=== PATIENT | female | born 1935 | race Caucasian/White ===

== ENCOUNTER 2016-07-27 17:38 | Emergency (ER) | payer SELFPAY ==
[2016-07-27 17:51] VITALS: BP 108/74; PULSE 77; RESP 14; TEMP 97.8; O2SAT 95
--- NOTE | 2016-07-27 17:59 | PD ---
Physical Exam Date Seen by Provider: July 27, 2016 Time Seen by Provider: 17:58 Narrative 80 yo female here for confusion and altered mental status for 2 days. No pain. history of CHF and COPD. No fevers, chills or sweats. More lethargic than usual. per family BP low. No falls or injuries. Currently staying at a hotel. Vitals sign stable. Patient awaiting bed placement. Data Data Last Documented VS Vital Signs Date Time Temp Pulse Resp B/P Pulse Ox O2 Delivery O2 Flow Rate FiO2 07/27/16 17:51 97.8 77 14 108/74 95 MDM Medical Record Reviewed: Yes Supervised Visit with MOHAN: No Ricardo Lawrence July 27, 2016 17:59
[2016-07-27] MEDS ORDERED: LISI2.5T3 PO (18:57)
[2016-07-27] MEDS ORDERED: CLOP75TA PO (18:57)
[2016-07-27] MEDS ORDERED: POTA10CA PO (18:57)
[2016-07-27] MEDS ORDERED: CLOR15TA PO (18:57)
[2016-07-27] MEDS ORDERED: OXYC15TA PO (18:57)
[2016-07-27] MEDS ORDERED: FURO40TA PO (18:57)
[2016-07-27] MEDS ORDERED: PERI8.6T PO (18:57)
[2016-07-27] MEDS ORDERED: SODIUM CHLORIDE 0.9% FLUSH 5 ML FLUSH IV FLUSH PRN (19:15)
--- NOTE | 2016-07-27 19:18 | PD ---
HPI Chief Complaint: Altered Mental Status Time Seen by Provider: 19:15 Travel History International Travel<30 days: No Contact w/Intl Traveler<30days: No Traveled to known affect area: No History of Present Illness HPI Patient comes in for evaluation of being more confused than normal over the past 20 days. Daughter denies patient complaining anything, known fevers, shortness of breath, chest pain, headaches, falls, or being on any blood thinners. Daughter reports that patient had similar about a month ago and was diagnosed with a UTI. Daughter also thinks that she may have gotten a half dose of her sister's clonidine by accident. Patient denies any chest pain, shortness of breath, recent falls, loss or change in bowel or bladder, abdominal pain, nausea, vomiting, or fevers. 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 ) Social History Alcohol Use: No Tobacco Use: Yes Substance Use: No Allergies-Medications (Allergen,Severity, Reaction): Coded Allergies: Iodine (Verified Allergy, Unknown, 07/27/16) Reported Meds & Prescriptions Reported Meds & Active Scripts Active Cephalexin 500 Mg Cap 500 Mg PO Q12H 10 Days Reported Clorazepate (Clorazepate Dipotassium) 15 Mg Tab 15 Mg PO BID PRN Potassium Chloride ER (Potassium Chloride) 10 Meq Cap 10 Meq PO DAILY Oxycodone (Oxycodone HCl) 15 Mg Tab 15 Mg PO Q6H PRN Clopidogrel (Clopidogrel Bisulfate) 75 Mg Tab 75 Mg PO DAILY Lisinopril 2.5 Mg Tab 2.5 Mg PO DAILY Arti-Colace (Sennosides-Docusate Sodium) 8.6-50 Mg Tab 1 Tab PO BID PRN Furosemide 40 Mg Tab 40 Mg PO DAILY Review of Systems Except as stated in HPI: all other systems reviewed are Neg Physical Exam Narrative GENERAL: Well-developed, well nourished, in no acute distress, and non-ill appearing. SKIN: Focused skin assessment warm and dry. HEAD: Atraumatic. Normocephalic. EYES: Pupils equal and round. EOMI. No scleral icterus. No injection or drainage. ENT: No nasal bleeding or discharge. Mucous membranes pink and moist. NECK: Trachea midline. No JVD. Supple. No nuclear rigidity. CARDIOVASCULAR: Regular rate and rhythm. No murmur appreciated. RESPIRATORY: No accessory muscle use. No respiratory distress. Clear to auscultation. Breath sounds equal bilaterally. GASTROINTESTINAL: Abdomen soft, non-tender, nondistended. Hepatic and splenic margins not palpable. Normal bowel sounds 4. No pulsatile mass. MUSCULOSKELETAL: No obvious deformities. No clubbing. No cyanosis. 1+ edema bilateral lower extremities and reports is chronic and improved. Full range of motion. NEUROLOGICAL: Awake and alert. No obvious cranial nerve deficits. Motor grossly within normal limits. Normal speech. PSYCHIATRIC: Appropriate mood and affect; insight and judgment normal. Data Data Last Documented VS Vital Signs Date Time Temp Pulse Resp B/P Pulse Ox O2 Delivery O2 Flow Rate FiO2 07/27/16 22:20 63 14 160/77 97 Room Air 07/27/16 17:51 97.8 Orders Electrocardiogram (07/27/16 19:06) Basic Metabolic Panel (Bmp) (07/27/16 19:06) Complete Blood Count With Diff (07/27/16 19:06) Troponin I (07/27/16 19:06) Urinalysis - C+S If Indicated (07/27/16 19:06) Chest, Single Ap (07/27/16 19:06) Blood Glucose (07/27/16 19:06) Ecg Monitoring (07/27/16 19:06) Iv Access Insert/Monitor (07/27/16 19:06) Oximetry (07/27/16 19:06) Sodium Chloride 0.9% Flush (Ns Flush) (07/27/16 19:15) Ct Brain W/O Iv Contrast(Rout) (07/27/16 ) Urine Culture (07/27/16 20:15) Ceftriaxone Inj (Rocephin Inj) (07/27/16 21:15) Labs Laboratory Tests Test 07/27/16 07/27/16 19:15 20:15 White Blood Count 7.0 TH/MM3 Red Blood Count 3.78 MIL/MM3 Hemoglobin 12.7 GM/DL Hematocrit 37.8 % Mean Corpuscular Volume 100.0 FL Mean Corpuscular Hemoglobin 33.7 PG Mean Corpuscular Hemoglobin 33.7 % Concent Red Cell Distribution Width 15.3 % Platelet Count 219 TH/MM3 Mean Platelet Volume 8.5 FL Neutrophils (%) (Auto) 63.6 % Lymphocytes (%) (Auto) 26.5 % Monocytes (%) (Auto) 7.3 % Eosinophils (%) (Auto) 1.6 % Basophils (%) (Auto) 1.0 % Neutrophils # (Auto) 4.4 TH/MM3 Lymphocytes # (Auto) 1.8 TH/MM3 Monocytes # (Auto) 0.5 TH/MM3 Eosinophils # (Auto) 0.1 TH/MM3 Basophils # (Auto) 0.1 TH/MM3 CBC Comment DIFF FINAL Differential Comment Sodium Level 136 MEQ/L Potassium Level 3.7 MEQ/L Chloride Level 90 MEQ/L Carbon Dioxide Level 41.3 MEQ/L Anion Gap 5 MEQ/L Blood Urea Nitrogen 8 MG/DL Creatinine 0.70 MG/DL Estimat Glomerular Filtration 81 ML/MIN Rate Random Glucose 90 MG/DL Calcium Level 8.6 MG/DL Troponin I 0.03 NG/ML Urine Color YELLOW Urine Turbidity CLEAR Urine pH 7.0 Urine Specific [place] 1.008 Urine Protein TRACE mg/dL Urine Glucose (UA) NEG mg/dL Urine Ketones NEG mg/dL Urine Occult Blood NEG Urine Nitrite NEG Urine Bilirubin NEG Urine Urobilinogen LESS THAN 2.0 MG/DL Urine Leukocyte Esterase LARGE Urine RBC 2 /hpf Urine WBC 27 /hpf Urine Squamous Epithelial <1 /hpf Cells Urine Mucus FEW /lpf Microscopic Urinalysis Comment CATH-CULTURE IND MDM Medical Decision Making Medical Screen Exam Complete: Yes Emergency Medical Condition: Yes Interpretation(s) EKG reviewed by Dr. Alford shows sinus bradycardia with ventricular rate of 58. No STEMI. CT the head read by the radiologist shows: 1. No acute intracranial abnormality. 2. Prior aneurysm clipping. 3. Areas of encephalomalacia involving parietal lobes bilaterally. Chest x-ray read by radiologist shows: Cardiomegaly and chronic interstitial change. Hyperinflation suggesting COPD. Differential Diagnosis UTI, pneumonia, dehydration, electrolyte abnormality, mass, other Narrative Course The patient presentation with history worsening confusion over the past 20 days and similar incident approximately a month ago secondary to a UTI. There is no evidence of pyelonephritis. The patient is tolerating fluids, no fever and no back pain. There is no clinical evidence to suggest atypical cervicitis, PID, appendicitis. The patient was discharged on antibiotics and given warnings to return if condition worsens in any way, fever, vomiting and unable to tolerate medications or fluids, back pain or as needed. The patient and her daughter was instructed to follow up with their physician. The patient and her daughter agrees with plan of care. Patient in no obvious distress upon re-evaluation. All pertinent laboratory/ Radiology result(s) discussed with patient/family. Discussed patient with Dr. Alford, who saw and evaluated the patient and is in agreement with plan of care and disposition. Any questions/concerns in reference to patient diagnosis/ condition discussed and clarified prior to patient's discharge. Reinforced sheer importance of close follow up with patient's primary physician or primary care clinic. Instructed patient to return to ED immediately, if symptoms return/ worsen. Pt showed understanding of above instructions. Further instructions and recommendations were detailed in discharge paperwork. Pt ambulated without difficulty out of ED at discharge. Diagnosis Primary Impression: UTI (urinary tract infection) Qualified Code: N39.0 - Urinary tract infection without hematuria, site unspecified Patient Instructions: General Instructions, Urinary Tract Infection in Women ( ED) Additional Instructions: Follow-up with your primary care physician in 3-5 days for evaluation. Take all medication as prescribed. Return to the emergency department if symptoms get worse. Med/Other Pt SpecificInfo: Prescription(s) given Scripts Cephalexin 500 Mg [id number] Mg PO Q12H 10 Days Ref 0 Prov:Sugey Alford MD 07/27/16 Disposition: 01 DISCHARGE HOME Condition: Stable Edis Hayes July 27, 2016 19:18
[2016-07-27 19:48] LABS: AUTOMATED NEUTROPHIL # 4.4 TH/MM3 (1.8-7.7); BASOPHIL # 0.1 TH/MM3 (0-0.2); EOSINOPHIL # 0.1 TH/MM3 (0-0.4); EOSINOPHIL % 1.6 % (0.0-4.0); HEMATOCRIT 37.8 % (35.0-46.0); HEMO FLAGS DIFF FINAL; LYMPH % 26.5 % (9.0-44.0); LYMPHOCYTE # 1.8 TH/MM3 (1.0-4.8); MEAN CORPUSCULAR HEMOGLOBIN 33.7 PG (27.0-34.0); MEAN CORPUSCULAR HGB CONC 33.7 % (32.0-36.0); MONO % 7.3 % (0.0-8.0); NEUT % 63.6 % (16.0-70.0); PLATELET COUNT 219 TH/MM3 (150-450); RED BLOOD COUNT 3.78 MIL/MM3 (4.00-5.30); RED CELL DISTRIBUTION WIDTH 15.3 % (11.6-17.2)
--- NOTE | 2016-07-27 19:53 | PD ---
Physical Exam Narrative General: The patient is a well-developed well-nourished female in no acute distress. Head and Neck exam: Head is normocephalic atraumatic. Eyes: EOMI, pupils are equal round and reactive to light. Nose: Midline septum with pink mucous membranes Mouth: Dentition unremarkable. Moist mucus membranes. Posterior oropharynx is not erythematous. No tonsillar hypertrophy. Uvula midline. Airway patent. Neck: No palpable lymphadenopathy. No nuchal rigidity. No thyromegaly. Cardiovascular: Regular rate and rhythm without murmurs, gallops, or rubs. Lungs: Clear to auscultation bilaterally. No wheezes, rhonchi, or rales. Abdomen: Soft, without tenderness to palpation in all 4 quadrants of the abdomen. No guarding, rebound, or rigidity. Normal bowel sounds were audible. No tenderness on palpation of McBurney's point. Negative Garner sign. Extremities: No clubbing, cyanosis, or edema. No calf tenderness on palpation. Back: No costovertebral angle tenderness to palpation. Neurologic Exam: Cranial nerves 2-12 were intact on exam. Strength is 5/5 in all 4 extremities. No sensory deficits noted. Skin Exam: No rash noted. Intact skin that is warm and dry. Data Data Last Documented VS Vital Signs Date Time Temp Pulse Resp B/P Pulse Ox O2 Delivery O2 Flow Rate FiO2 07/27/16 17:51 97.8 77 14 108/74 95 Orders Electrocardiogram (07/27/16 19:06) Basic Metabolic Panel (Bmp) (07/27/16 19:06) Complete Blood Count With Diff (07/27/16 19:06) Troponin I (07/27/16 19:06) Urinalysis - C+S If Indicated (07/27/16 19:06) Chest, Single Ap (07/27/16 19:06) Blood Glucose (07/27/16 19:06) Ecg Monitoring (07/27/16 19:06) Iv Access Insert/Monitor (07/27/16 19:06) Oximetry (07/27/16 19:06) Sodium Chloride 0.9% Flush (Ns Flush) (07/27/16 19:15) Ct Brain W/O Iv Contrast(Rout) (07/27/16 ) Urine Culture (07/27/16 20:15) Ceftriaxone Inj (Rocephin Inj) (07/27/16 21:15) Labs Laboratory Tests Test 07/27/16 07/27/16 19:15 20:15 White Blood Count 7.0 TH/MM3 Red Blood Count 3.78 MIL/MM3 Hemoglobin 12.7 GM/DL Hematocrit 37.8 % Mean Corpuscular Volume 100.0 FL Mean Corpuscular Hemoglobin 33.7 PG Mean Corpuscular Hemoglobin 33.7 % Concent Red Cell Distribution Width 15.3 % Platelet Count 219 TH/MM3 Mean Platelet Volume 8.5 FL Neutrophils (%) (Auto) 63.6 % Lymphocytes (%) (Auto) 26.5 % Monocytes (%) (Auto) 7.3 % Eosinophils (%) (Auto) 1.6 % Basophils (%) (Auto) 1.0 % Neutrophils # (Auto) 4.4 TH/MM3 Lymphocytes # (Auto) 1.8 TH/MM3 Monocytes # (Auto) 0.5 TH/MM3 Eosinophils # (Auto) 0.1 TH/MM3 Basophils # (Auto) 0.1 TH/MM3 CBC Comment DIFF FINAL Differential Comment Sodium Level 136 MEQ/L Potassium Level 3.7 MEQ/L Chloride Level 90 MEQ/L Carbon Dioxide Level 41.3 MEQ/L Anion Gap 5 MEQ/L Blood Urea Nitrogen 8 MG/DL Creatinine 0.70 MG/DL Estimat Glomerular Filtration 81 ML/MIN Rate Random Glucose 90 MG/DL Calcium Level 8.6 MG/DL Troponin I 0.03 NG/ML Urine Color YELLOW Urine Turbidity CLEAR Urine pH 7.0 Urine Specific [place] 1.008 Urine Protein TRACE mg/dL Urine Glucose (UA) NEG mg/dL Urine Ketones NEG mg/dL Urine Occult Blood NEG Urine Nitrite NEG Urine Bilirubin NEG Urine Urobilinogen LESS THAN 2.0 MG/DL Urine Leukocyte Esterase LARGE Urine RBC 2 /hpf Urine WBC 27 /hpf Urine Squamous Epithelial <1 /hpf Cells Urine Mucus FEW /lpf Microscopic Urinalysis Comment CATH-CULTURE IND MDM Medical Record Reviewed: Yes Supervised Visit with MOHAN: Yes Interpretation(s) Last Impressions Chest X-Ray 07/27/16 1906 Signed Impressions: Service Date/Time: Wednesday, July 27, 2016 19:49 - CONCLUSION: Cardiomegaly and chronic interstitial change. Hyperinflation suggesting COPD. Alvin Ennis Jr., MD Head CT 07/27/16 0000 Signed Impressions: Service Date/Time: Wednesday, July 27, 2016 19:40 - CONCLUSION: 1. No acute intracranial abnormality. 2. Prior aneurysm clipping. 3. Areas of encephalomalacia involving parietal lobes bilaterally. Alvin Ennis Jr., MD Narrative Course I, Dr. Alford, have reviewed the advance practice practitioner's documentation and am in agreement, met with the patient face to face, made the diagnosis, and the medical decision making was done by me. The patient was initially seen by Edis, the physician assistant vice president. Please see his complete history and physical. *My assessment and Findings: The patient is a 80-year-old female who presents to [facility] emergency Department with a history of reported increased confusion recently. The patient also has a history of recurrent urinary tract infections. The patient is accompanied to the emergency department by her daughter. The patient on arrival is awake and alert. The patient appears to be at her baseline of mentation. Physical exam was essentially unremarkable. Laboratory studies and imaging studies were ordered. Laboratory studies were remarkable for a normal complete blood count, basic well -developed profiles remarkable for chloride of 90, CO2 41.3 and in a patient with a known history of COPD, GFR of 81, troponin I 0.03, urinalysis is remarkable for large leukocyte esterase, 27 WBCs this is reportedly a catheterized specimen according to the laboratory record, culture indicated. The patient was given Rocephin 1 g IV. The patient will be discharged home with a prescription for antibiotic. The patient is resting comfortably and feels better, is alert and in no distress. The patients results and examination findings were discussed with the patient. The repeat examination is unremarkable and benign. The history, exam, diagnostic testing, and current condition do not suggest any significant pathology to warrant further testing, continued ED treatment, admission, or surgical evaluation at this point. The vital signs have been stable. The patient does not have uncontrollable pain, intractable vomiting, or other significant symptoms. The patient's condition is stable and appropriate for discharge. The patient will pursue further outpatient evaluation with a primary care physician or other designated or consulting physician as indicated in the discharge instructions. The patient expressed understanding and was agreeable with this plan. Diagnosis Primary Impression: UTI (urinary tract infection) Qualified Code: N39.0 - Urinary tract infection without hematuria, site unspecified Scripts Cephalexin 500 Mg [id number] Mg PO Q12H 10 Days Ref 0 Prov:Sugey Alford MD 07/27/16 Sugey Alford MD July 27, 2016 19:53
--- NOTE | 2016-07-27 20:00 | RADRPT ---
EXAM DATE/TIME: 07/27/2016 19:40 [facility] COMPARISON: No previous studies available for comparison. INDICATIONS : Altered mental status. RADIATION DOSE: 44.16 CTDIvol (mGy) MEDICAL HISTORY : Cerebrovascular disease. Hypertension. Congestive heart failure. SURGICAL HISTORY : aneurysm clips ENCOUNTER: Initial ACUITY: 1 day PAIN SCALE: Non-responsive LOCATION: cranial TECHNIQUE: Multiple contiguous axial images were obtained of the head. Using automated exposure control and adj ustment of the mA and/or kV according to patient size, radiation dose was kept as low as reasonably a chievable to obtain optimal diagnostic quality images. FINDINGS: Areas of encephalomalacia are seen involving the parietal lobes bilaterally. This is more pronounced on the left. No hemorrhage or acute infarction. Prior aneurysm clipping involving the middle cranial fossa on the right. A right temporal craniotomy defect noted. Paranasal sinuses and mastoid air cells are clear. CONCLUSION: 1. No acute intracranial abnormality. 2. Prior aneurysm clipping. 3. Areas of encephalomalacia involving parietal lobes bilaterally. Alvin Ennis Jr., MD on July 27, 2016 at 19:56 Board Certified Radiologist. This report was verified electronically.
[2016-07-27 20:03] LABS: BICARBONATE 41.3 MEQ/L (21.0-32.0); POTASSIUM 3.7 MEQ/L (3.5-5.1)
--- NOTE | 2016-07-27 20:11 | RADRPT ---
EXAM DATE/TIME: 07/27/2016 19:49 [facility] COMPARISON: No previous studies available for comparison. INDICATIONS : Confusion. MEDICAL HISTORY : None. SURGICAL HISTORY : None. ENCOUNTER: Initial ACUITY: 1 day PAIN SCORE: Non-responsive. LOCATION: Bilateral chest FINDINGS: 2 portable frontal views of the chest show mild cardiomegaly. Chronic interstitial changes involving the lungs. Lungs are hyperaerated. No infiltrates or effusions. A scoliotic and degenerative spine. CONCLUSION: Cardiomegaly and chronic interstitial change. Hyperinflation suggesting COPD. Alvin Ennis Jr., MD on July 27, 2016 at 20:08 Board Certified Radiologist. This report was verified electronically.
[2016-07-27 20:56] LABS: BLOOD, URINE NEG (NEG); GLUCOSE,URINE NEG (NEG); KETONE, URINE NEG (NEG); MUCUS URINE FEW /lpf (OCC); NITRITE,URINE NEG (NEG); SQUAMOUS EPITHELIAL CELL URINE <1 /hpf (0-5); URINE COLOR YELLOW (YELLW/STRAW)
[2016-07-27 20:57] LABS: COMMENT (UR) CATH-CULTURE IND; CULTURE IF INDICATED CATH CULTURE IND
[2016-07-27] MEDS ORDERED: cefTRIAXone INJ 1,000 MG in SODIUM CHLORIDE 0.9% INJ 100 ML IV ONE (21:15)
[2016-07-27] MEDS ORDERED: CEPH500C PO (21:32)
[2016-07-27 22:20] VITALS: BP 160/77; PULSE 63; RESP 14; O2SAT 97
--- NOTE | 2016-07-28 09:19 | EKG ---
Date Performed: 07/27/2016 Time Performed: 19:21:30 PTAGE: 80 years EKG: SINUS BRADYCARDIA POSSIBLE LEFT ATRIAL ENLARGEMENT MARKED LEFT AXIS DEVIATION POSSIBLE RIGH T VENTRICULAR CONDUCTION DELAY POSSIBLE ANTERIOR MYOCARDIAL INFARCTION ABNORMAL ECG NO PREVIOUS TRACING DOCTOR: Alber Segovia Interpretating Date/Time 07/28/2016 09:16:27
== END 2016-07-27 22:39 | disposition home or self-care (01) ==
LOC: NEPE 17:38
DX: N39.0 Urinary tract infection, site not specified (principal); B96.89 Other specified bacterial agents as the cause of diseases classified elsewhere; I50.9 Heart failure, unspecified; I10 Essential (primary) hypertension; I51.7 Cardiomegaly; J44.9 Chronic obstructive pulmonary disease, unspecified; J45.909 Unspecified asthma, uncomplicated; R00.1 Bradycardia, unspecified; Z72.0 Tobacco use
CPT/HCPCS: 70450; 71010; 80048; 81001; 84484; 85025; 87086; 93005; 96365; 99285; J0696